=== PATIENT | female | born 1960 | race Caucasian/White ===

== ENCOUNTER → 2023-12-13 | Outpatient (CLI) | payer OTHER, SELFPAY ==
--- OUTSIDE RECORDS SUMMARY | 2023-12-13 07:16 | XMS RPT_ITS | CCD ---
Author Organization [facility] Inform ion Partnership [facility] Care Team Providers Care Die Cutter Apprentice Name Role Phone Ho Estrada Primary Care Provider Unavailabl HO Canales Primary Care Unavailable CAREN MCKOY Referring Unavailable Ho Estrada Primary Care Provider Unavailabl hector Allergies Allergy Classification Reported Allergen(s) Allergy Type Date of Onset Reaction(s) Facility (6 sources) Penicillins; Translations: [PENICILLINS] Propensity to adverse reactions 10-31-2006 [facility] Work Phone: Medications Current Medications Medication Drug Class(es) Dates Sig (Normalized) Sig (Original) atorvastatin 20 mg oral tablet (5 sources) HMG-CoA Reductase Inhibitor Start: 10-31-2006 take 1 tablet by mouth once daily atorvastatin (LIPITOR) 20 mg ORAL Tab Take one(1) tablet daily. 0 10/31/2006 Active Comment on above: Take one(1) tablet d aily. calcium, elemental, ORAL Tab (5 sources) Start: 08-31-2010 take 1 tablet by mouth twice daily calcium, elemental, ORAL Tab Take 1 tablet by mouth twice daily. 0 08/31/2010 Active Comment on above: Take 1 tablet by yoli th twice daily. 0.5 ml dulaglutide 1.5 mg/ml auto-injector (5 sources) GLP-1 Receptor Agonist Start: 08-17-2022 inject 0.75 mg by subcutaneous injection every week dulaglutide (TRULICITY) 0.75 mg/0.5 mL pen injector Inject 0.75 mg subcutaneously one time a week. 0 08/17/2022 Active Comment on above: Inject 0.75 mg subcu taneously one time a week. metFORMIN (5 sources) Biguanide METFORMIN HCL (METFORMIN ORAL) Take by mouth. 0 Active Comment on above: Take by mouth. Problems Problem Classification Problem Date Documented Da te Episodic/Chronic Disorders of lipid metabolism (5 sources) Hypercholesterolemi a; Translations: [Pure hypercholesterolemi a, unspecified] Onset: 10-31-2011 10-31-2011 Chronic Menstrual disorders (5 sources) Menorrhagia; Translations: [Excessive and frequent menstruation with regular cycle] Onset: 11-24-2012 11-24-2012 Chronic Other screening for suspected conditions (not mental disorders or infectious disease) (4 sources) Patient encounter status; Translations: [Encounter for screening mammogram for malignant neoplasm of breast] Onset: 08-23-2023 Episodic Results Test Name Value Interpretation Reference Range Facil ity HAILEY SCREENINGon 08-23-2023 HAILEY SCREENING * * *Final Report* * * DATE OF EXAM: Aug 23 2023 8:17AM [facility] [id number] - [facility] SCREENING / PROCEDURE REASON: Encounter for screening mammogram for malignant neoplasm of breast * * * * Physician Interpretation * * * * RESULT: #[id number] - HAILEY SCREENING BILATERAL DIGITAL SCREENING MAMMOGRAM WITH CAD: 08/23/2023 HISTORY: Encounter For Screening Mammogram For Malignant Neoplasm Of Breast / Screening Mammogram-Patient reports NO symptoms. /priors available for comparison. RESULT: TECHNIQUE: The study was acquired using full field digital technology and interpreted from soft copy. Current study was also evaluated with a Computer Aided Detection (CAD). Comparison is made to exams dated: 08/17/2022 mammogram, 10/11/2020 mammogram, and 08/05/2020 mammogram - [facility]. Current study contains 4 films. There are scattered areas of fibroglandular density. There are benign calcifications in the left breast. No significant masses, calcifications, or other findings are seen in either breast. There has been no significant interval change. IMPRESSION: BENIGN FINDING There is no mammographic evidence of malignancy. A 1 year screening mammogram is recommended. The exam was reviewed by a staff physician. radha Frausto M.D., D.O./franchesca:08/23/2023 13:11:24 Shale Miner Blasting(s): Johnna Horton, [facility] letter sent: Normal over 40 Mammogram BI-RADS: 2 Benign finding Multiple national specialty organizations have released breast cancer screening guidelines for women at average risk for developing breast cancer - guidelines that are based on both evidence and opinion, yet differ on when to start and how often to screen for breast cancer. With representation from Breast Imaging, Internal Medicine, Women's Health, Family Medicine, and Medical/Surgical Oncology, the [facility] has carefully reviewed the data and reached the following consensus: 1) All women should engage in shared decision-making with their providers to decide when to start and how often to screen; 2) All women should have the opportunity to start screening mammography at age 40; 3) For women ages 45-55, we recommend annual screening mammograms; 4) For women ages 55 and over, we support both the transition from an annual to a biennial interval if this aligns more with patient's values and preferences, or continuation with annual screening; 5) All women should discuss with their providers when to stop screening mammograms. Fisher Trawl Net: Franchesca Transcribe Date/Time: Aug 23 2023 8:04A Dictated by: VICTORINA TRAYLOR, DO This examination was interpreted and the report reviewed and electronically signed by: MIGUEL GRIJALVA MD on Aug 23 2023 1:11PM EST [id number] Normal [facility] HAILEY SCREENINGon 08-17-2022 [facility] Vital Signs Date Time Vital Sign Value Performing Clinician Faci lity 08-17-2022 08:56-0400 Body height 162.6 cm Caren Leelee EYEGLASS CUTTER.[employer]ER [employer] Work Phone: [facility] 08-17-2022 08:56-0400 Body weight 85.91 kg Caren Lakeland EYEGLASS CUTTER.[employer] Work Phone: [facility] 08-17-2022 08:56-0400 Diastolic blood pressure 82 mm[Hg] Caren Lakeland EYEGLASS CUTTER.[employer] Work Phone: [facility] 08-17-2022 08:56-0400 Systolic blood pressure 124 mm[Hg] Caren Lakeland EYEGLASS CUTTER.[employer] Work Phone: [facility] Encounters Encounter Date Encounter Type Care Provider Facility Start: 08-23-2023 Documentation procedure Mammog joann Coordinator [facility] Department Start: 08-23-2023 Letter encounter Mammography Coordinator [facility] Start: 08-23-2023 End: 08-23-2023 ambulatory HO KARO BAY Facility:[facility] Start: 08-23-2023 End: 08-23-2023 Subsequent hospital visit by physician Screen Mammo [facility] Mammogram Comment on above: Encounter for screen ing mammogram for malignant neoplasm of breast [Z12.31] Start: 08-20-2022 Documentation procedure Mammog joann Coordinator [facility] Start: 08-20-2022 Letter encounter Mammography Coordinator [facility] Department Start: 08-17-2022 End: 08-17-2022 Patient encounter procedure Caren Mckoy APRN.CNP Work Phone: OB/Gynecology Comment on above: Encounter for gyneco logical examination without abnormal finding (Primary Dx); Encounter for screening mammogram for malignant neoplasm of breast Start: 08-17-2022 End: 08-17-2022 Patient encounter status Caren Mckoy APRN.CNP Work Phone: OB/Gynecology Start: 08-17-2022 End: 08-17-2022 Subsequent hospital visit by physician Screen Mammo [facility] Mammogram Comment on above: Encounter for screen ing mammogram for malignant neoplasm of breast [Z12.31] Procedures Date Procedure Procedure Detail Performing Clinician Start: 08-17-2022 End: 08-17-2022 Mammography Dayanna Orozco APRN.CNP Work Phone: Start: 08-05-2020 Mammography Caren Mcintosh peyman EYEGLASS CUTTERMYKE Work Phone: Start: 02-22-2014 Colonoscopy Caren long-term EYEGLASS CUTTER.[employer] Work Phone: Start: 10-10-2011 Lipid 1996 panel - S nomi or Plasma Screen Wstr Plan of Treatment Date Care Activity Detail Author Start: 08-05-2025 HPV TESTING HPV TESTING [facility] Start: 08-05-2025 PAP TESTING PAP TESTING [facility] Start: 08-05-2025 Screening for malign ant neoplasm of cervix Cervical Cancer Screening [facility] Start: 08-22-2024 Screening for malign ant neoplasm of breast Mammogram Screening [facility] Start: 02-23-2024 Colonoscopy COLONOSCOPY [facility] Start: 02-23-2024 COLORECTAL CANCER SCREENING COLORECTAL CANCER SCREENING [facility] Start: 02-23-2024 Screening for malign ant neoplasm of colon [facility] Start: 10-20-2023 Influenza vaccination Influenza Vacc ine (#1) [facility] Start: 08-18-2023 Mammography [facility] Start: 08-18-2023 Screening for malign ant neoplasm of breast Mammogram Screening [facility] Start: 02-18-2023 Behavioral Health Screening Behavioral Health Screening [facility] Start: 10-19-2022 Covid-19 Vaccine () Covid-19 Vaccine () [facility] Start: 10-19-2022 Influenza vaccination [facility] Start: 02-18-2022 DEPRESSION ASSESSMENT DEPRESSION ASS ESSMENT [facility] Start: 2021 RSV Vaccine (1 - 1-d ose 60+ series) RSV Vaccine (1 - 1-dose 60+ series) [facility] Start: 10-30-2021 Urine microalbumin profile [facility] Start: 08-05-2021 Mammography MAMMOGRAM [facility] Start: 03-04-2021 COVID-19 VACCINE (4 - Booster for Moderna series) COVID-19 VACCINE (4 - Booster for Moderna series) [facility] Start: 03-21-2018 DIABETES SCREEN DIABETES SCREEN [facility] Start: 03-21-2018 Diabetes Screening Diabetes Screenin g [facility] Start: 10-09-2016 Lipid 1996 panel - S nomi or Plasma Lipid Screening [facility] Start: 10-09-2016 Lipid panel Lipid Screening [facility] Start: 10-09-2016 LIPID SCREEN LIPID SCREEN [facility] Start: 11-12-2011 SHINGRIX VACCINE (1 of 2) SHINGRIX VACCINE (1 of 2) [facility] Start: 2006 COLOGUARD (FIT-DNA) COLOGUARD (FIT-D NA) [facility] Start: [address] COLONOGRAPHY [facility] Start: 2006 FECAL OCCULT BLOOD FECAL OCCULT BLOO D [facility] Start: 2006 Screening for malign ant neoplasm of colon [facility] Start: 2006 SIGMOIDOSCOPY SIGMOIDOSCOPY [facility] Start: 11-12-1979 HIV SCREENING HIV SCREENING [facility] Start: 11-12-1979 HIV screening HIV Screening [facility] End: 09-16-2023 HAILEY SCREENING HAILEY SCREENING Radiology Routine Encounter for screening mammogram for malignant neoplasm of breast 1 Occurrences starting 08/17/2022 until 09/16/2023 [facility] Work Phone: Comment on above: 1 Occurrences starti ng 08/17/2022 until 09/16/2023 MG Breast Screening HAILEY SCREENIN G Radiology Routine Encounter for screening mammogram for malignant neoplasm of breast 08/23/2023 8:17 AM EDT [facility] Work Phone: Immunizations Immunization Date Immunization Notes Care Provider Fa flower 01-07-2021 influenza virus vaccine, unspecified formulation Screen Wstr [facility] 10-31-2011 tetanus toxoid, redu reuben diphtheria toxoid, and acellular pertussis vaccine, adsorbed Caren Leelee EYEGLASS CUTTER.[employer] Work Phone: [facility] Work Phone: Payers Date Payer Category Payer Unknown MMO MMO [employer] PPO [id number] 2019-Present [phone] [address] [place] [address] PPO [id number] 2019 Unknown [id number] Social History Date Type Detail Facility Start: 08-17-2022 Tobacco smoking stat us LAIS Never smoked tobacco [facility] Start: 08-17-2022 Tobacco use and exposure Smoke less tobacco non-user [facility] Start: 08-17-2022 Alcohol intake Current drinke r of alcohol (finding) [facility] Start: 1960 Sex Assigned At Not on file [facility] Start: 01-24-2020 End: 08-17-2022 History of Social function [facility] Start: 01-24-2020 End: 08-17-2022 Tobacco use panel [facility] National Score (1-10 0), lower number is lower risk Not on file [facility] Clinical Notes 08-17-2022 to 08-23-2023 Letter - Coordinator, Mammography - 08/23/2023 1:11 PM Artur - Coordinator, Mammography - 08/23/2023 1:11 PM EDTSJohnna rey RT(R) - 08/23/2023 8:10 AM EDT Note Date & Type Note Facility 08-23-2023 Note Formatting of this n ote might be different from the original. August 26, 2023 PID: [id number] Collette Toney [address] [place] [address] Dear Ms. Toney, We are pleased to inform you that the results of your recent breast imaging exam on 08/23/2023 are normal. Early detection of cancer is very important. We also understand recommendations regarding breast cancer screening are controversial. Please discuss with your primary care provider which strategy is best for you and whether a mammogram is right for you. Your imaging studies and report will be kept on file at [facility] as part of your permanent medical record and are available for your continuing care. Thank you for allowing us to help in meeting your health care needs. Sincerely, Dr. Grijalva Interpreting Radiologist [facility] (Normal over 40) [facility] 08-23-2023 Miscellaneous Notes August 26, 2023 PID: [id number] Collette Toney [address] [place] [address] Dear Ms. Toney, We are pleased to inform you that the results of your recent breast imaging exam on 08/23/2023 are normal. Early detection of cancer is very important. We also understand recommendations regarding breast cancer screening are controversial. Please discuss with your primary care provider which strategy is best for you and whether a mammogram is right for you. Your imaging studies and report will be kept on file at [facility] as part of your permanent medical record and are available for your continuing care. Thank you for allowing us to help in meeting your health care needs. Sincerely, Dr. Grijalva Interpreting Radiologist [facility] (Normal over 40) documented in this encounter [facility] 08-23-2023 History of Presen t illness Narrative Radiology Service Progress Note PATIENT NAME: Collette Toney DATE OF SERVICE: August 23, 2023 TIME: 8:45 AM PATIENT IDENTITY VERIFICATION COMPLETED USING TWO (2) IDENTIFIERS: Name and Date of confirmed by patient verbally. FALL SCREENING: Has the patient had 2 falls in the last year or 1 fall with injury or currently using an Ambulatory Assistive Device (Walker, Cane, Wheelchair, Crutches, etc.)? No PATIENT GENDER DATA: Female. status: : No status: NO. PATIENT RELEVANT IMPLANT DATA REVIEWED: Not Applicable PATIENT PRESENTS WITH AN IMPLANTABLE OR ATTACHED BUDGET DIRECTOR: No RADIOLOGY DEPARTMENT: Mammography PERIPHERAL IV DATA: Not applicable SIGNED BY: RT Edson(R) August 23, 2023 8:45 AM documented in this encounter [facility] 08-23-2023 Note HNO ID: [id number] Author: JOHNNA HORTON RT(R) Service: ? Author Type: Technologist Type: Progress Notes Filed: 08/23/2023 08:46 Note Text: Radiology Service Progress Note PATIENT NAME: Collette Toney DATE OF SERVICE: August 23, 2023 TIME: 8:45 AM PATIENT IDENTITY VERIFICATION COMPLETED USING TWO (2) IDENTIFIERS: Name and Date of confirmed by patient verbally. FALL SCREENING: Has the patient had 2 falls in the last year or 1 fall with injury or currently using an Ambulatory Assistive Device (Walker, Cane, Wheelchair, Crutches, etc.)? No PATIENT GENDER DATA: Female. status: : No status: NO. PATIENT RELEVANT IMPLANT DATA REVIEWED: Not Applicable PATIENT PRESENTS WITH AN IMPLANTABLE OR ATTACHED BUDGET DIRECTOR: No RADIOLOGY DEPARTMENT: Mammography PERIPHERAL IV DATA: Not applicable SIGNED BY: RT Edson(R) August 23, 2023 8:45 AM [facility] 08-20-2022 Miscellaneous Notes August 21, 2022 PID: [id number] Collette Toney [address] [place] [address] Dear Ms. Toney, We are pleased to inform you that the results of your recent breast imaging exam on 08/17/2022 are normal. Early detection of cancer is very important. We also understand recommendations regarding breast cancer screening are controversial. Please discuss with your primary care provider which strategy is best for you and whether a mammogram is right for you. Your imaging studies and report will be kept on file at [facility] as part of your permanent medical record and are available for your continuing care. Thank you for allowing us to help in meeting your health care needs. Sincerely, Dr. Ingram Interpreting Radiologist [facility] (Normal over 40) documented in this encounter [facility] 08-17-2022 History of Presen t illness Narrative Radiology Service Progress Note PATIENT NAME: Collette Toney DATE OF SERVICE: August 17, 2022 TIME: 10:34 AM PATIENT IDENTITY VERIFICATION COMPLETED USING TWO (2) IDENTIFIERS: Name and Date of confirmed by patient verbally. FALL SCREENING: Has the patient had 2 falls in the last year or 1 fall with injury or currently using an Ambulatory Assistive Device (Walker, Cane, Wheelchair, Crutches, etc.)? No PATIENT GENDER DATA: Female. status: : No status: NO. PATIENT RELEVANT IMPLANT DATA REVIEWED: Not Applicable RADIOLOGY DEPARTMENT: Mammography PERIPHERAL IV DATA: Not applicable SIGNED BY: RT Edson(R) August 17, 2022 10:34 AM documented in this encounter [facility] 08-17-2022 History of Presen t illness Narrative Perl Developer offered: Patient declines. Collette is a 61 year old who presents for an annual gynecologic exam without complaints. Postmenopausal: Yes HRT use: No. Last Pap: 08/09/2020 normal HPV: 08/09/2020 negative History of abnormal pap: Yes Last mammogram: 2022 pending History of abnormal mammogram: No Sexually active: No OB History T0 L2 SAB0 IAB0 Ectopic0 Multiple0 Live Births0 Comment: 2 vaginal deliveries Clinical Nurse History LMP: 06/28/2007, Postmenopausal Age at Menarche: Age at First : Age at Menopause: Clinical Nurse History Comments: Sexual Activity: Not Currently; No partner data on record Contraception: No contraception data on record PAST MEDICAL HISTORY Diagnosis Date Diabetes (HCC) type 2 Encounter for insertion or removal of intrauterine contraceptive device 04/29/07 Mirena Irregular heart rhythm Other and unspecified hyperlipidemia Hyperlipidemia PAST SURGICAL HISTORY Procedure Laterality Date NONE FAMILY HISTORY Problem Relation Age of Onset other (PARKINSONS) Mother Heart Father Heart Maternal Grandfather SOCIAL HISTORY Social History Tobacco Use Smoking status: Never Smokeless tobacco: Never Vaping Use Vaping Use: Never used Substance Use Topics Alcohol use: Yes Comment: occasional Drug use: No REVIEW OF SYSTEMS Abdomen: No abdominal pain, nausea, vomiting, diarrhea, or constipation. No bloating, early satiety, indigestion, or increased flatulence. Bladder: No dysuria, gross hematuria, urinary frequency, urinary urgency, or incontinence Breast: No breast lumps, nipple d/c, overlying skin changes, redness or skin retraction Allergies and current medication updated:Yes EXAM: BP 124/82 Ht 5' 4 (1.63m) Wt 189 lb 6.4 oz (85.9kg) LMP 06/28/2007 BMI 32.49 kg/(m^2). GENERAL: pleasant, female in no apparent distress HEENT: Normocephalic, atraumatic, mucus membranes moist, and no lesions NECK: Supple, full range of motion, no adenopathy, and thyroid normal DERMATOLOGY: Normal, without lesions, non-icteric, and non-hirsute BREAST: soft, non-tender, symmetric, no dominant mass, normal nipple-areolar complex, no lymphadenopathy, and no nipple discharge CHEST: Normal inspiratory effort ABDOMEN: soft, non-tender, and no masses PELVIC: external genitalia normal, normal Bartholin's glands, urethra, Plessis's glands, no vulvar lesions, good vaginal support, physiologic discharge present, normal appearing perineal body and perianal region +small cervical polyp (to small to grasp) BIMANUAL: uterus normal size, shape and consistency, no adnexal masses, and non-tender RECTOVAGINAL: deferred. NEURO: alert and oriented x3,exam grossly non-focal EXTREMITIES: normal ASSESSMENT/PLAN: 1) Health maintenance: Pap/HPV up to date. Mammogram up to date Nutrition, exercise and routine health maintenance exams reviewed. Calcium/Vitamin D supplementation information provided. Colon cancer screening: followed by PCP 2) Follow up one year or sooner as needed Caren Mckoy APRN.CNP documented in this encounter [facility] Evaluation note Diagnosis Encounter for gynecological examination without abnormal finding- Primary Routine gynecological examination Encounter for screening mammogram for malignant neoplasm of breast Other screening mammogram [facility] Diagnosis Encounter for screening mammogram for malignant neoplasm of breast Other screening mammogram [facility] Diagnosis Encounter for screening mammogram for malignant neoplasm of breast Other screening mammogram documented in this encounter [facility] for referral (narrative)* Diagnostic Procedure Only (Routine) - Pending Review Specialty Diagnoses / Procedures Referred By Lola mansfield Referred To Contact [facility] Diagnoses Encounter for screening mammogram for malignant neoplasm of breast Procedures HAILEY SCREENING SCREENING MAMMOGRAPHY BI 2-VIEW BREAST INC CAD Caren Mckoy APRN.CNP [address] [place] [address] [facility] [address] [place] [address] Referral ID Status Reason Start Date Expiration Date Visits Requested Visits Authorized [id number] Pending Review Auto-Generat ed Referral 08/17/2022 09/16/2023 1 1 [facility] for referral (narrative)* Diagnostic Procedure Only (Routine) - Closed Specialty Diagnoses / Procedures Referred By Contac t Referred To Contact [facility] Diagnoses Encounter for screening mammogram for malignant neoplasm of breast Procedures HAILEY SCREENING SCREENING MAMMOGRAPHY BI 2-VIEW BREAST INC CAD Dayanna Orozco APRN.CNP [address] [place] [address] [facility] [address] [place] [address] Referral ID Status Reason Start Date Expiration Date V isits Requested Visits Authorized [id number] Closed Auto-Generate d Referral 06/13/2022 07/13/2023 1 1 [facility] for visit Narrative* Diagnostic Procedure Only (Routine) - Closed Specialty Diagnoses / Procedures Referred By Contcindy t Referred To Contact [facility] Diagnoses Encounter for screening mammogram for malignant neoplasm of breast Procedures HAILEY SCREENING SCREENING MAMMOGRAPHY BI 2-VIEW BREAST INC CAD Dayanna Orozco APRN.ASSEMBLER [employer] [address] [place] [address] [facility] [address] [place] [id number] Referral ID Status Reason Start Date Expiration Date V isits Requested Visits Authorized [id number] Closed Auto-Generate d Referral 06/13/2022 07/13/2023 1 1 [facility] for visit Narrative* Diagnostic Procedure Only (Routine) - Closed Specialty Diagnoses / Procedures Referred By Lola mansfield Referred To Contact [facility] Diagnoses Encounter for screening mammogram for malignant neoplasm of breast Procedures HAILEY SCREENING SCREENING MAMMOGRAPHY BI 2-VIEW BREAST INC CAD Caren Mckoy, EYEGLASS CUTTER.ASSEM[employer]ER [employer] [address] [place] [address] [facility] [address] [place] [address] Referral ID Status Reason Start Date Expiration Date V isits Requested Visits Authorized [id number] Closed Auto-Generate d Referral 08/17/2022 09/16/2023 1 1 [facility] Summary Purpose Family History No Family History Records Found Advance Directives No Advanced Directives Records Found Additional Source Comments Source Comments (unrecognize d section and content) In the event this informatio n is protected by the Federal Confidentiality of Alcohol and Drug Abuse Patient Records regulations: The Federal rules restrict any use of the information to criminally investigate or prosecute any alcohol or drug abuse patient.[facility] event this information is protected by the Federal Confidentiality of Alcohol and Drug Abuse Patient Records regulations: The Federal rules restrict any use of the information to criminally investigate or prosecute any alcohol or drug abuse patient.[facility] the event this information is protected by the Federal Confidentiality of Alcohol and Drug Abuse Patient Records regulations: The Federal rules restrict any use of the information to criminally investigate or prosecute any alcohol or drug abuse patient.[facility]In the event this information is protected by the Federal Confidentiality of Alcohol and Drug Abuse Patient Records regulations: The Federal rules restrict any use of the information to criminally investigate or prosecute any alcohol or drug abuse patient.[facility] the event this information is protected by the Federal Confidentiality of Alcohol and Drug Abuse Patient Records regulations: The Federal rules restrict any use of the information to criminally investigate or prosecute any alcohol or drug abuse patient.[facility] Reason for Visit (unrecogniz ed section and content) Reason Onset Date Comments Yearly Exam 08/17/2022 Care Teams (unrecognized sec tion and content) Die Cutter Apprentice Relationship Specialty Start Date End Date Ho Estrada PCP - General 04/16/03 Die Cutter Apprentice Relationship Specialty Start Date End Date Ho Estrada PCP - General 04/16/03 Die Cutter Apprentice Relationship Specialty Start Date End Date Ho Estrada PCP - General 04/16/03 Die Cutter Apprentice Relationship Specialty Start Date End Date Ho Estrada PCP - General 04/16/03 INFORMATION SOURCE (unrecogn ized section and content) DATE CREATED AUTHOR 08/26/2023 [facility] FOR RECORDS PERTAINING TO PATIENTS WHO ARE OR HAVE BEEN ENROLLED IN A CHEMICAL DEPENDENCY/SUBSTANCEABUSE PROGRAM, SOME INFORMATION MAY BE OMITTED. This clinical summary was aggregated from multiple sources. Caution should be exercised in using it in the provision of clinical care. This summary normalizes information from multiple sources, and as a consequence, information in this document may materially change the coding, format and clinical context of patient data. In addition, data may be omitted in some cases. CLINICAL DECISIONS SHOULD BE BASED ON THE PRIMARY CLINICAL RECORDS. [email or web address] provides no warranty or guarantee of the accuracy or completeness of information in this document.
[2023-12-13 10:28] LABS: Absolute Lymphocyte Count 1.67 X10^3/uL (0.83-4.51); Absolute Neutrophil Count 3.8 X10^3/uL (2.0-7.7); Basophil# 0.06 X10^3/uL; Eosinophil# 0.15 X10^3/uL; Eosinophils% 2.5 % (0-5); Hematocrit 40.5 % (37-47); Hemoglobin 13.5 g/dL (12.0-15.0); Lymphocyte # 1.67 X10^3/ul (0.83-4.51); Lymphocyte % 27.6 % (19-41); Mean Corp Hgb Conc 33.3 g/dL (32-36); Mean Corpuscular Hgb 29.9 pg (27.0-32.0); Mean Corpuscular Volume 89.8 fL (81-99); Monocyte# 0.36 X10^3/uL; NRBC Flagged by Analyzer 0 % (0-5); Neutrophil # 3.78 X10^3/uL (2.7-7.7); Neutrophil % 62.6 % (47-70); Platelet Count 250 K/mm3 (150-450); RBC Distribution Width CV 13.2 % (11.6-14.6); RBC Distribution Width SD 43.2 fl (35.1-43.9); Red Blood Count 4.51 M/mm3 (4.2-5.4)
[2023-12-13 10:48] LABS: Microalbumin,Random Urine 14.8 mg/L (NO RANGE EST.); Microalbumin:Creatinine Ratio 9.3 mg/g CRE (<30 mg/g CRE)
[2023-12-13 11:23] LABS: ALB/GLOB Ratio 1.2 RATIO (0.9-2.4); AST(SGOT) 17 U/L (15-37); Alanine Aminotransfer ALT/SGPT 28 U/L (13-56); Alkaline Phosphatase 77 U/L (45-117); Anion Gap 6 (5-15); BUN 23 mg/dL (7-18); BUN/Creat Ratio 29.8 RATIO (10-20); Calcium,Total 9.6 mg/dL (8.5-10.1); Chloride 107 mmol/L (98-107); Cholesterol 244 mg/dL (200); Creatinine, Serum 0.77 mg/dL (0.55-1.02); EST Glomerular Filtration Rate 81 mL/min (>60); Est Glom Filt Rate - Afr Amer 98 mL/min (>60); Globulin 3.3 g/dL (2.2-4.2); Glucose 113 mg/dL (74-106); High Density Lipoprotein 65 mg/dL; Potassium 4.1 mmol/L (3.5-5.1); Protein, Total 7.3 g/dL (6.4-8.2); Sodium Level 138 mmol/L (136-145); Triglycerides 116 mg/dL; Very Low Density Lipoprotein 23 mg/dL (5-40)
== END | disposition home or self-care (01) ==
LOC: MTLAB 07:15
PROVIDERS: PCP Family Medicine; Referring Provider Family Medicine; Visit Provider Family Medicine
DX: Z00.00 Encounter for general adult medical examination without abnormal findings (principal); E11.9 Type 2 diabetes mellitus without complications
CPT/HCPCS: 36415; 80053; 80061; 82043; 82570; 85025